=== PATIENT | female | born 1955 | race Caucasian/White ===

== ENCOUNTER → 2016-06-29 | Day surgery (SDC) | payer OTHER ==
[2016-06-29 06:13] LABS: HCT 42.2 % (37.0-47.0); HGB 13.6 g/dl (12.5-16.0); MCH 27.7 pg (25.0-31.0); MCHC 32.2 g/dL (32.0-36.0); MCV 85.9 fL (78.0-100.0); MPV 10.2 fL (6.0-9.5); RBC 4.91 M/uL (4.20-5.40); RDW 13.3 % (11.5-14.0); WBC 11.7 K/uL (4.0-10.5)
[2016-06-29 06:31] LABS: CREATININE 0.7 mg/dL (0.5-1.0); POTASSIUM 3.9 mmol/L (3.5-5.1)
== END | disposition home or self-care (01) ==
LOC: FAS 05:28
PROVIDERS: Anesthesiology; Legal Medicine
DX: M24.611 Ankylosis, right shoulder (principal); F41.9 Anxiety disorder, unspecified; K21.9 Gastro-esophageal reflux disease without esophagitis; E11.9 Type 2 diabetes mellitus without complications; M79.7 Fibromyalgia; I10 Essential (primary) hypertension; F17.210 Nicotine dependence, cigarettes, uncomplicated; Z90.710 Acquired absence of both cervix and uterus; Z90.89 Acquired absence of other organs; Z90.49 Acquired absence of other specified parts of digestive tract; Z98.890 Other specified postprocedural states; Z88.8 Allergy status to other drugs, medicaments and biological substances; Z79.84 Long term (current) use of oral hypoglycemic drugs; Z79.82 Long term (current) use of aspirin; Z79.899 Other long term (current) drug therapy
CPT/HCPCS: 36415; 80048; 97162; J1100; J2704; J2795; J3010